=== PATIENT | female | born 1925 | race Caucasian/White ===

== ENCOUNTER → 2016-09-30 | Outpatient (CLI) | payer OTHER ==
[2015-06-27 14:11] VITALS: BP 164/70
== END ==
LOC: RAD 09:42
PROVIDERS: ATTEND Specialist
DX: Z12.31 Encounter for screening mammogram for malignant neoplasm of breast (principal)
CPT/HCPCS: 77067

== ENCOUNTER 2016-11-17 09:15 | Emergency (ER) | payer OTHER ==
[2016-11-17 09:22] VITALS: BP 147/64; BMI 23.9
--- NOTE | 2016-11-17 09:53 | DR.GENAD ---
HPI - PCP Primary Care Physician: junior - Complaint/Symptoms Chief Complaint:: patient stated she fell at home and landed on her left side. she is having upper left back pain and skin tear on her left elbow. - Nurses notes reviewed Nurses Notes Review: Yes - Source History Provided: Patient - Mode of Arrival Mode of Arrival: Ambulatory - Timing Onset of Chief Complaint: 11/15/16 Came on: Suddenly - Duration Duration: Constant Duration: Days PMH - PMH Past Medical History: No Past Surgical History: Yes Surgical History: IT LEAD Surgery, Hysterectomy, Ortho Surgery Past Surgical History Comment: breast reduction, cancer tx - Family History History of Family Medical Conditions: No - Social History Does patient currently use any type of tobacco product: No Have you used tobacco products in the last 12 months: No Type of Tobacco Use: None Does any household member use tobacco: No Alcohol Use: None Do you use any recreational Drugs:: No Lives With: Alone Lives Where: Home - infectious screening In the last 2 months have you had wt loss of >10#?: NO Have you had fever, night sweats or hemotysis?: No Have you traveled outside the country in the last 6 months?: No Isolation: Standard PE - Vital Signs Vitals: Temperature 98.9 F Pulse Rate 78 Respiratory Rate 16 Blood Pressure 147/64 O2 Sat by Pulse Oximetry 99 - Discharge Plan Condition: Stable - Follow ups/Referrals Follow ups/Referrals: Bj Moss [Primary Care Provider] - 2 days - Instructions Instructions: Rib Fracture, [id number] Additional Instructions: RETURN TO ED IF WORSE. CONTINUE WITH TRAMADOL YOU HAVE AT HOME.
--- NOTE | 2016-11-17 10:20 | RAD ---
HISTORY: Injury, fall, left rib pain Study: Left ribs four view Comparison: none Findings: The heart is within normal limits in size. The denton are normal. The aorta is calcified and ectatic. The lung bazzi are clear. There are fractures of the left lateral 7th and 8th ribs. The remainder o f the left ribs are intact. No pneumothorax or pleural effusion is identified. IMPRESSION: Fractures of the left 7th and 8th ribs laterally Reported By:
== END 2016-11-17 11:05 | disposition home or self-care (01) ==
LOC: MERGE 09:30 → ER 09:30
DX: S22.41XA Multiple fractures of ribs, right side, initial encounter for closed fracture (principal); W19.XXXA Unspecified fall, initial encounter; Y92.009 Unspecified place in unspecified non-institutional (private) residence as the place of occurrence of the external cause
CPT/HCPCS: 71111; 99282

== ENCOUNTER 2017-03-28 21:44 | Inpatient (IN) | payer OTHER ==
[2017-03-28 21:59] VITALS: BMI 23.3
[2017-03-28] MEDS ORDERED: ZOFRAN INJ 4 MG VIAL IVP ONE (22:40)
[2017-03-28] MEDS ORDERED: NS 1000 ML 1,000 ML IV ONE (22:40)
--- NOTE | 2017-03-28 22:41 | DR.GENAD ---
HPI - PCP Primary Care Physician: dr. moss - Complaint/Symptoms Chief Complaint Doctors Comments: Patient presented to the ED with comlaint of weakness and possible UTI. She states that she gets UTIs frequently and is on nitrofurantoin. She denies fever, vomiting or diarrhea. 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 Past Surgical History Comment: back surgery, knee replacement - Family History History of Family Medical Conditions: Yes Family Medical History: [place], Hypertension - Social History Does patient currently use any type of tobacco product: No Have you used tobacco products in the last 12 months: No Type of Tobacco Use: None Does any household member use tobacco: No Alcohol Use: None Do you use any recreational Drugs:: No Lives With: Alone Lives Where: Home - infectious screening In the last 2 months have you had wt loss of >10#?: NO Have you had fever, night sweats or hemotysis?: No Have you traveled outside the country in the last 6 months?: No Isolation: Standard ROS - Review of Systems Constitutional: negative: Diaphoresis Eyes: No Symptoms Reported ENTM: No Symptoms Reported Respiratoy: No Symptoms Reported Cardiovascular: No Symptoms Reported Gastrointestinal/Abdominal: No Symptoms Reported Genitourinary: No Symptoms Reported Neurological: No Symptoms Reported Musculoskeletal: No Symptoms Reported Integumentary: No Symptoms Reported Hematologic/Lymphatic: No Symptoms Reported Endocrine: No Symptoms Reported Psychiatric: No Symptoms Reported All Other Systems: Reviewed and Negative PE - Vital Signs Vitals: Temperature 99.3 F Pulse Rate 92 Respiratory Rate 20 Blood Pressure [Left Arm] 164/70 Blood Pressure 145/65 O2 Sat by Pulse Oximetry 93 - General General Appearance: Alert, In No Apparent Distress - Head Head Exam: Normal Inspection, Atraumatic - Eyes Eye exam: Normal Appearance, PERRL, EOMI - ENT ENT Exam: Normal Exam, Normal Oropharynx External Ear Exam: Normal External Inspection TM/Canal Exam: Bilateral Normal Nose Exam: Normal Nose Exam Mouth Exam: Other (dry) Throat Exam: Normal Inspection - Neck Neck Exam: Normal Inspection, Full ROM - Chest Chest Inspection: Normal Inspection - Respiratory Respiratory Exam: Normal Lung Sounds Bilat Respiratory Exam: Bilateral Clear to Auscultation - Cardiovascular Cardiovascular Exam: Regular Rate, Normal Rhythm - Abdominal Exam Abdominal Exam: Normal Inspection Abdominal Tenderness: negative: RUQ, RLQ, LUQ, LLQ, Epigastrium, Suprapubic, Diffuse, Mild, Moderate, Severe, Other - Extremities Extremities Exam: Normal Inspection. negative: Normal Capillary Refill - Back Back Exam: Normal Inspection - Neurologic Neurological Exam: Alert, Oriented X3, CN II-XII Intact - Psychiatric Psychiatric Exam: Normal Affect, Normal Mood - Skin Skin Exam: Warm, Dry, Intact Course - Reevaluation 1st: Unchanged - Consultation Called: 12:35 (Dr Balbuena agreed to admit for further evaluation and treatment) ROR - Labs Reviewed Result Diagrams: 03/28/17 22:00 03/28/17 22:00 Laboratory: WBC 9.3 X10^3/uL (3.6-10.0) 03/28/17 22:00 RBC 5.00 X10^6/uL (3.5-5.4) 03/28/17 22:00 Hgb 14.0 g/dL (12.0-16.0) 03/28/17 22:00 Hct 41.4 % (36.0-47.0) 03/28/17 22:00 MCV 82.8 fL (80.0-100.0) 03/28/17 22:00 MCH 28.0 pg (27.0-34.0) 03/28/17 22:00 MCHC 33.8 g/dL (33.0-35.0) 03/28/17 22:00 RDW 14.2 % (11.6-16.5) 03/28/17 22:00 Plt Count 168 X10^3/uL (150.0-450.0) 03/28/17 22:00 Plt Count Comment Adequate (ADEQUATE) 03/28/17 22:00 MPV 9.0 fL (7.4-11.0) 03/28/17 22:00 Neut % 95.1 % (42.0-75.0) H 03/28/17 22:00 Lymph % 2.9 % (21.0-51.0) L 03/28/17 22:00 [place] % 1.7 % (0.0-13.0) 03/28/17 22:00 Eos % 0.2 % (0.9-2.9) L 03/28/17 22:00 Baso % 0.1 % (0.2-1.0) L 03/28/17 22:00 Neut # 8.8 x10^3/uL (2.2-4.8) H 03/28/17 22:00 Lymph # 0.3 X10^3/uL (1.3-2.9) L 03/28/17 22:00 [place] # 0.2 x10^3/uL (0.3-0.8) L 03/28/17 22:00 Eos # 0.0 x10^3/uL (0.0-0.2) 03/28/17 22:00 Baso # 0.0 X10^3/uL (0.0-0.1) 03/28/17 22:00 Absolute Nucleated RBC 0.2 /100WBC 03/28/17 22:00 Total Counted 100 03/28/17 22:00 Neutrophils % (Manual) 80 % (39-76) H 03/28/17 22:00 Band Neutrophils % 13 % (0-10) H 03/28/17 22:00 Lymphocytes % (Manual) 5 % (13-43) L 03/28/17 22:00 Monocytes % (Manual) 2 % (4-9) L 03/28/17 22:00 Plt Morphology Comment Normal (NORMAL) 03/28/17 22:00 RBC Morphology Abnormal (NORMAL) A 03/28/17 22:00 Hypochromasia Slight A 03/28/17 22:00 Sodium 141 mmol/L (136-145) 03/28/17 22:00 Corrected Sodium 141 mmol/L (136-145) 03/28/17 22:00 Potassium 3.8 mmol/L (3.5-5.1) 03/28/17 22:00 Chloride 103 mmol/L (98-107) 03/28/17 22:00 Carbon Dioxide 28.0 mmol/L (21-32) 03/28/17 22:00 BUN 12 mg/dL (7-18) 03/28/17 22:00 Creatinine 0.60 mg/dL (0.55-1.02) 03/28/17 22:00 Est GFR (MDRD) Af Amer > 60 (>60) 03/28/17 22:00 Est GFR (MDRD) Non-Af > 60 (>60) 03/28/17 22:00 Glucose 111 mg/dL (65-99) H 03/28/17 22:00 Calcium 9.4 mg/dL (8.5-10.1) 03/28/17 22:00 Corrected Calcium 10.0 mg/dL (8.5-10.1) 03/28/17 22:00 Total Bilirubin 0.80 mg/dL (0.2-1.0) 03/28/17 22:00 AST 35 Units/L (15-37) 03/28/17 22:00 ALT 31 Units/L (12-78) 03/28/17 22:00 Alkaline Phosphatase 136 Units/L (46-116) H 03/28/17 22:00 Total Protein 7.2 g/dL (6.4-8.2) 03/28/17 22:00 Albumin 3.3 g/dL (3.4-5.0) L 03/28/17 22:00 Globulin 3.9 g/dL (2.5-4.5) 03/28/17 22:00 Albumin/Globulin Ratio 0.8 Ratio (1.1-2.1) L 03/28/17 22:00 Specimen Type Clean catch urine 03/28/17 23:07 Urine Color Yellow (YELLOW) 03/28/17 23:07 Urine Appearance Clear (CLEAR) 03/28/17 23:07 Urine pH 6.0 (5.0 - 8.0) 03/28/17 23:07 Ur Specific [place] 1.015 (1.000-1.030) 03/28/17 23:07 Urine Protein Negative (NEGATIVE) 03/28/17 23:07 Urine Glucose (UA) Negative (NEGATIVE) 03/28/17 23:07 Urine Ketones Negative (NEGATIVE) 03/28/17 23:07 Urine Occult Blood Negative (NEGATIVE) 03/28/17 23:07 Urine Nitrite Negative (NEGATIVE) 03/28/17 23:07 Urine Bilirubin Negative (NEGATIVE) 03/28/17 23:07 Urine Urobilinogen Normal (NORMAL) 03/28/17 23:07 Ur Leukocyte Esterase 1+ (NEGATIVE) 03/28/17 23:07 Urine RBC None seen /HPF (NEGATIVE) 03/28/17 23:07 Urine WBC 2-4 /HPF (NEGATIVE) 03/28/17 23:07 Ur Squamous Epith Cells Rare /HPF (NEGATIVE) 03/28/17 23:07 Urine Bacteria Trace /HPF (NEGATIVE) 03/28/17 23:07 Ur Culture Indicated? No/not indicated 03/28/17 23:07 - XRAY XRAY Interpreted by: Radiologist (Chest:There is cardiomegaly and chronic COPD change with hyperiinflation. Pleural thickening in the left lung base noted with underlying infiltrate possible. Left lung base infiltrate possible. Follow up with PA and lateral chest.) - Diagnosis Discharge Problem: Pneumonia involving left lung Qualifiers: Pneumonia type: due to unspecified organism Lung location: lower lobe of lung Qualified Code(s): J18.1 - Lobar pneumonia, unspecified organism - Discharge Plan Condition: Stable - Follow ups/Referrals Follow ups/Referrals: Bj Moss [Primary Care Provider] - 3 days - Instructions
[2017-03-28] MEDS ORDERED: ZOFRAN INJ 4 MG VIAL ONE (22:45)
[2017-03-28] MEDS ORDERED: NS 1000 ML 1,000 ML ONE (22:45)
[2017-03-28 22:48] LABS: BASOPHILS % (AUTO) 0.1 % (0.2-1.0); EOSINOPHILS % (AUTO) 0.2 % (0.9-2.9); HEMATOCRIT 41.4 % (36.0-47.0); LYMPHOCYTES # (AUTO) 0.3 X10^3/uL (1.3-2.9); LYMPHOCYTES % (AUTO) 2.9 % (21.0-51.0); MEAN CORPUSCULAR HGB CONC 33.8 g/dL (33.0-35.0); MEAN CORPUSCULAR VOLUME 82.8 fL (80.0-100.0); MONOCYTES # (AUTO) 0.2 x10^3/uL (0.3-0.8); MONOCYTES % (AUTO) 1.7 % (0.0-13.0); NEUTROPHILS # (AUTO) 8.8 x10^3/uL (2.2-4.8); NEUTROPHILS % (AUTO) 95.1 % (42.0-75.0); PLATELET COUNT 168 X10^3/uL (150.0-450.0); RED CELL DISTRIBUTION WIDTH 14.2 % (11.6-16.5); WHITE BLOOD COUNT 9.3 X10^3/uL (3.6-10.0)
[2017-03-28 22:57] LABS: ALANINE AMINOTRANSFERASE 31 Units/L (12-78); ALBUMIN 3.3 g/dL (3.4-5.0); ALKALINE PHOSPHATASE 136 Units/L (46-116); ASPARTATE AMINO TRANSFERASE 35 Units/L (15-37); BLOOD UREA NITROGEN 12 mg/dL (7-18); CALCIUM 9.4 mg/dL (8.5-10.1); CHLORIDE 103 mmol/L (98-107); COR NA(FOR HYPERGLY) 141 mmol/L (136-145); SODIUM 141 mmol/L (136-145); TOTAL PROTEIN 7.2 g/dL (6.4-8.2); eGFR BLACK RACES > 60 (>60); eGFR NON BLACK RACES > 60 (>60)
[2017-03-28 23:13] LABS: BAND NEUTROPHILS % 13 % (0-10); HYPOCHROMASIA SLIGHT; PLATELET MORPHOLOGY COMMENT NORMAL (NORMAL)
[2017-03-28 23:19] LABS: BILIRUBIN,URINE NEGATIVE (NEGATIVE); BLOOD/HEMOGLOBIN,URINE NEGATIVE (NEGATIVE); GLUCOSE, URINE NEGATIVE (NEGATIVE); KETONES,URINE NEGATIVE (NEGATIVE); LEUKOCYTE ESTERASE ,URINE 1+ (NEGATIVE); NITRITES,URINE NEGATIVE (NEGATIVE); PROTEIN,URINE NEGATIVE (NEGATIVE); UROBILINOGEN,URINE NORMAL (NORMAL)
[2017-03-28 23:25] LABS: APPEARANCE,URINE CLEAR (CLEAR); BACTERIA,URINE TRACE /HPF (NEGATIVE); COLOR,URINE YELLOW (YELLOW); RBC,URINE NONE SEEN /HPF (NEGATIVE); SQUAMOUS EPITHELIAL CELL,UR RARE /HPF (NEGATIVE)
--- NOTE | 2017-03-29 00:17 | RAD ---
Chest AP portable Indication: Weakness Comparison: 05/19/2012 Findings: There is cardiomegaly and chronic COPD change with hyperinflation. Pleural thickening in th e left lung base noted with underlying infiltrate possible. Small effusion possible. No pneumothorax seen. Impression: Cardiomegaly and COPD change. Left lung base infiltrate possible. Follow-up with PA and l ateral chest. Reported By:
[2017-03-29] MEDS ORDERED: NS 1000 ML 1,000 ML ONE (00:18)
[2017-03-29] MEDS: NS 1000 ML 1,000 ML IV SCH ×2 (00:26→16:41)
[2017-03-29] MEDS: LEVAQUIN PREMIX IV 750 MG 750 MG/150 ML BAG IV SCH ×2 (01:18→09:45)
[2017-03-29] MEDS ORDERED: NS 1/2 1000 ML IV 1,000 ML IV ONE ×2 (01:27→16:36)
[2017-03-29] MEDS: NS 1/2 1000 ML IV 1,000 ML IV SCH ×2 (01:38→16:43)
[2017-03-29 05:52] LABS: ALANINE AMINOTRANSFERASE 38 Units/L (12-78); ALBUMIN 2.7 g/dL (3.4-5.0); ALKALINE PHOSPHATASE 101 Units/L (46-116); ASPARTATE AMINO TRANSFERASE 45 Units/L (15-37); BLOOD UREA NITROGEN 13 mg/dL (7-18); CALCIUM 8.3 mg/dL (8.5-10.1); CHLORIDE 105 mmol/L (98-107); COR CA(FOR HYPOALB) 9.3 mg/dL (8.5-10.1); COR NA(FOR HYPERGLY) 141 mmol/L (136-145); CREATININE 0.69 mg/dL (0.55-1.02); SODIUM 140 mmol/L (136-145); eGFR BLACK RACES > 60 (>60); eGFR NON BLACK RACES > 60 (>60)
[2017-03-29 05:56] LABS: CARBON DIOXIDE 22.6 mmol/L (21-32)
[2017-03-29] MEDS: DUONEB 0.5 MG/3 MG NEB SCH ×5 (06:03→20:58)
[2017-03-29] MEDS ORDERED: MIRALAX POWDER (1 DOSE 17GM) ONE (07:33)
[2017-03-29] MEDS: MIRALAX POWDER (1 DOSE 17GM) PO SCH (07:45)
[2017-03-29] MEDS ORDERED: ULTRAM PO PRN ×3 (09:45→14:00)
[2017-03-29] MEDS: ROBITUSSIN DM PO SCH ×4 (09:45→21:29)
[2017-03-29] MEDS ORDERED: ZOFRAN INJ 4 MG VIAL IVP PRN (09:48)
[2017-03-29] MEDS ORDERED: ULTRAM ONE (09:49)
[2017-03-29] MEDS ORDERED: NS 50 ML IV + SPIKE MINIBAG* 50 ML IV ONE (10:06)
[2017-03-29] MEDS ORDERED: FORTAZ or TAZICEF INJ ONE (10:08)
[2017-03-29] MEDS: PEPCID 20 MG IV PREMIX* 20 MG/50 ML BAG IV SCH ×2 (10:20→21:29)
[2017-03-29] MEDS: FORTAZ or TAZICEF INJ 2 GM in NS 50 ML IV + SPIKE MINIBAG* 50 ML IV SCH ×3 (10:20→21:29)
[2017-03-29] MEDS: PROTONIX INJ 40 MG VIAL IVP SCH ×2 (10:21→21:29)
[2017-03-29] MEDS ORDERED: FLUVIRIN IM ONE (14:02)
[2017-03-29] MEDS ORDERED: ULTRAM PO SCH (21:00)
[2017-03-30] MEDS: DUONEB 0.5 MG/3 MG NEB SCH ×6 (00:41→20:12)
[2017-03-30] MEDS ORDERED: NS 1/2 1000 ML IV 1,000 ML IV ONE ×2 (05:01→17:51)
[2017-03-30] MEDS: FORTAZ or TAZICEF INJ 2 GM in NS 50 ML IV + SPIKE MINIBAG* 50 ML IV SCH ×3 (05:08→21:15)
[2017-03-30] MEDS: NS 1/2 1000 ML IV 1,000 ML IV SCH ×3 (05:08→21:14)
[2017-03-30 06:22] LABS: ALANINE AMINOTRANSFERASE 28 Units/L (12-78); ALBUMIN 2.4 g/dL (3.4-5.0); ALKALINE PHOSPHATASE 77 Units/L (46-116); ASPARTATE AMINO TRANSFERASE 32 Units/L (15-37); BLOOD UREA NITROGEN 12 mg/dL (7-18); CARBON DIOXIDE 25.6 mmol/L (21-32); CHLORIDE 105 mmol/L (98-107); COR CA(FOR HYPOALB) 9.3 mg/dL (8.5-10.1); CREATININE 0.57 mg/dL (0.55-1.02); SODIUM 139 mmol/L (136-145); TOTAL PROTEIN 5.5 g/dL (6.4-8.2); eGFR BLACK RACES > 60 (>60); eGFR NON BLACK RACES > 60 (>60)
[2017-03-30 06:43] LABS: BASOPHILS % (AUTO) 0.4 % (0.2-1.0); EOSINOPHILS # (AUTO) 0.3 x10^3/uL (0.0-0.2); EOSINOPHILS % (AUTO) 3.3 % (0.9-2.9); HEMATOCRIT 33.1 % (36.0-47.0); HEMOGLOBIN 11.1 g/dL (12.0-16.0); LYMPHOCYTES # (AUTO) 1.2 X10^3/uL (1.3-2.9); MEAN CORPUSCULAR HEMOGLOBIN 28.1 pg (27.0-34.0); MEAN CORPUSCULAR HGB CONC 33.6 g/dL (33.0-35.0); MEAN CORPUSCULAR VOLUME 83.6 fL (80.0-100.0); MEAN PLATELET VOLUME 9.9 fL (7.4-11.0); MONOCYTES # (AUTO) 0.5 x10^3/uL (0.3-0.8); MONOCYTES % (AUTO) 5.7 % (0.0-13.0); NEUTROPHILS # (AUTO) 6.7 x10^3/uL (2.2-4.8); NEUTROPHILS % (AUTO) 76.6 % (42.0-75.0); PLATELET COUNT 89 X10^3/uL (150.0-450.0); RED BLOOD COUNT 3.96 X10^6/uL (3.5-5.4); RED CELL DISTRIBUTION WIDTH 14.6 % (11.6-16.5); WHITE BLOOD COUNT 8.8 X10^3/uL (3.6-10.0)
[2017-03-30] MEDS ORDERED: BUTT CREAM (COMPOUND) ONE (08:35)
[2017-03-30] MEDS: MIRALAX POWDER (1 DOSE 17GM) PO SCH (09:12)
[2017-03-30] MEDS: ROBITUSSIN DM PO SCH ×4 (09:13→21:15)
[2017-03-30] MEDS: PEPCID 20 MG IV PREMIX* 20 MG/50 ML BAG IV SCH ×2 (09:13→21:14)
[2017-03-30] MEDS: LEVAQUIN PREMIX IV 750 MG 750 MG/150 ML BAG IV SCH (09:13)
[2017-03-30] MEDS: PROTONIX INJ 40 MG VIAL IVP SCH ×2 (09:13→21:14)
--- NOTE | 2017-03-30 11:01 | DR.H&P ---
H&P - History & Physical for Day of: H&P Date: 03/29/17 - Chief Complaint Chief Complaint: NAUSEA, WEAKNESS - Allergies Allergies/Adverse Reactions: Allergies Allergy/AdvReac Type Severity Reaction Status Date / Time naproxen Allergy Verified 03/28/17 22:22 Penicillins Allergy Verified 03/28/17 22:22 - History of Present Illness History of Present Illness: Ms. Fisher is a 89 year old patient of ours who presented to the emergency room with complaints of nausea, weakness, and bladder infection.Patient reports that she has been taking Nitrofurantoin 100mg that was prescribed by us with no improvement in symptoms. Patient reports a history of frequent urinary tract infections. She is also noted with complaints of shortness of breath. On arrival, patient is noted to be short of breath on exertion. Patient placed on supplemental oxygen at 2LPM nasal cannula. On examination, lungs are noted with diminished lung sounds and wheezing bilaterally to auscultation. Abdomen is soft, round, and non-tender. She reports difficulty coughing and difficulty clearing secretions. Patient reports that she has to sit on the edge of the bed to help with her breathing. Sputum from nasotracheal suction is noted to be thick and yellow. On arrival to ER, vital signs were 99.3, 92, 20, 93%NC 2LPM, 145/65. A CBC, CMP, urinalysis, and chest xray were obtained. Abnormal lab values include the following: Neut% 95.1 , Lymph% 2.9, Eos% 0.2, Baso% 0.1, Neut# 8.8, Lymph# 0.3, [place]# 0.2, [place]%(man) 80, Band Neut%(man) 13, Lymph%(man) 5, [place]%(man) 2, RBC Morphology Abnormal A, Hypochromasia Slight A, Glucose 111, Alk Phos 136, Albumin 3.3, A/G Ratio 0.8. Urinalysis reported: Leuk [place] 1+, WBC 2-4, Squam Epith Cells Rare, bacteria Trace. Blood cultures and sputum culture was obtained and sent to lab and are pending results. A chest xray was obtained and reported: Cardiomegaly and COPD change. Left lung base infiltrate possible. Follow up with PA and lateral chest recommended. We admitted to the hospital for further treatment and evaluation. We will start patient on pneumonia protocol with levaquin 750mg iv daily and scheduled nebulizer treatments. We plan to follow up with am labs and chest xray and continue to monitor. 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 denies: Fever Eyes: No Symptoms Reported. denies: Vision Change ENT: No Symptoms Reported. denies: Nose Discharge, Nose Congestion Respiratory: Cough, Shortness of Breath, SOB with Excertion, Wheezing Cardiovascular: No Symptoms Reported. denies: Palpitations, Light Headedness Gastrointestinal: Nausea, Abdominal Pain. denies: Diarrhea, Constipation, Hematochezia Genitourinary: Dysuria Musculoskeletal: No Symptoms Reported Skin: No Symptoms Reported Neurological: Weakness. denies: Change in Speech, Seizures - Physical Exam Vital Signs: Temperature 98.2 F Pulse Rate [Right Radial] 63 Pulse Rate 58 Respiratory Rate 17 Blood Pressure [Left Arm] 112/55 Blood Pressure 145/65 O2 Sat by Pulse Oximetry 97 Oriented: Normal Eyes: Normal Ear: Normal Nose: Normal Throat: Dry Respiratory: Clear Throughout, Diminished Throughout, Wheezes Throughout Cardiovascular: Tachycardia : Normal, Dysuria Auscultation: Bowel Sounds: Normal Palpation: Normal Tenderness: Suprapubic Skin: Normal Musculoskeletal: Instability Psychiatric: Normal Mood Description: Calm Affect: Normal Speech Pattern: Clear. negative: Aphasic, Artificially Ventilated - Assessment/Plan (1) Pneumonia involving left lung Qualifiers: Pneumonia type: due to unspecified organism Lung location: lower lobe of lung Qualified Code(s): J18.1 - Lobar pneumonia, unspecified organism Status: Acute Plan: pneumonia protocol, levaquin 750mg iv daily, duonebs, supplemental oxygen , continue to monitor
[2017-03-31] MEDS: DUONEB 0.5 MG/3 MG NEB SCH ×6 (01:14→21:09)
[2017-03-31] MEDS: FORTAZ or TAZICEF INJ 2 GM in NS 50 ML IV + SPIKE MINIBAG* 50 ML IV SCH ×3 (05:20→21:13)
[2017-03-31 06:11] LABS: BASOPHILS % (AUTO) 0.6 % (0.2-1.0); EOSINOPHILS # (AUTO) 0.4 x10^3/uL (0.0-0.2); EOSINOPHILS % (AUTO) 7.4 % (0.9-2.9); HEMATOCRIT 33.5 % (36.0-47.0); HEMOGLOBIN 11.3 g/dL (12.0-16.0); LYMPHOCYTES # (AUTO) 1.3 X10^3/uL (1.3-2.9); LYMPHOCYTES % (AUTO) 26.4 % (21.0-51.0); MEAN CORPUSCULAR HEMOGLOBIN 28.2 pg (27.0-34.0); MEAN CORPUSCULAR HGB CONC 33.7 g/dL (33.0-35.0); MEAN CORPUSCULAR VOLUME 83.5 fL (80.0-100.0); MEAN PLATELET VOLUME 8.9 fL (7.4-11.0); MONOCYTES # (AUTO) 0.4 x10^3/uL (0.3-0.8); MONOCYTES % (AUTO) 8.6 % (0.0-13.0); NEUTROPHILS # (AUTO) 2.8 x10^3/uL (2.2-4.8); PLATELET COUNT 121 X10^3/uL (150.0-450.0); RED BLOOD COUNT 4.02 X10^6/uL (3.5-5.4); RED CELL DISTRIBUTION WIDTH 14.5 % (11.6-16.5); WHITE BLOOD COUNT 4.9 X10^3/uL (3.6-10.0)
[2017-03-31 06:33] LABS: ALANINE AMINOTRANSFERASE 29 Units/L (12-78); ALBUMIN 2.4 g/dL (3.4-5.0); ALKALINE PHOSPHATASE 95 Units/L (46-116); ASPARTATE AMINO TRANSFERASE 29 Units/L (15-37); BLOOD UREA NITROGEN 15 mg/dL (7-18); CALCIUM 8.4 mg/dL (8.5-10.1); CARBON DIOXIDE 27.2 mmol/L (21-32); CHLORIDE 107 mmol/L (98-107); COR CA(FOR HYPOALB) 9.7 mg/dL (8.5-10.1); CREATININE 0.72 mg/dL (0.55-1.02); SODIUM 141 mmol/L (136-145); TOTAL PROTEIN 5.7 g/dL (6.4-8.2); eGFR BLACK RACES > 60 (>60); eGFR NON BLACK RACES > 60 (>60)
[2017-03-31] MEDS: LEVAQUIN PREMIX IV 750 MG 750 MG/150 ML BAG IV SCH (08:00)
[2017-03-31] MEDS: PEPCID 20 MG IV PREMIX* 20 MG/50 ML BAG IV SCH ×2 (08:00→21:12)
[2017-03-31] MEDS: ROBITUSSIN DM PO SCH ×4 (08:00→21:13)
[2017-03-31] MEDS: PROTONIX INJ 40 MG VIAL IVP SCH ×2 (08:00→21:13)
[2017-03-31] MEDS: MIRALAX POWDER (1 DOSE 17GM) PO SCH (08:00)
[2017-03-31] MEDS ORDERED: NS 1/2 1000 ML IV 1,000 ML IV ONE (16:24)
[2017-03-31] MEDS: NS 1/2 1000 ML IV 1,000 ML IV SCH (16:27)
--- NOTE | 2017-03-31 21:56 | PCM.PROG ---
Progress Note - Progress Note for Day of Date: 03/30/17 - Subjective Subjective: WAS ADMITTED FOR PNEUMONIA AND DEHYDRATION. TODAY, SHE IS ALERT AND ORIENTED, LYING IN BED ON MORNING ROUNDS. PATIENT'S DAUGHTER IS AT BEDSIDE. SHE IS NOTED WITH COMPLAINTS OF NAUSEA, SHORTNESS OF BREATH, BIALTERAL LEG PAIN, AND PRODUCTIVE COUGH. ON EXAMINATION, LUNGS ARE NOTED WITH RHONCHI BILATERALLY TO AUSCULTATION. ABDOMEN IS ROUND, SOFT, AND NON-TENDER WITH NORMAL BOWEL SOUNDS NOTED TO AUSCULTATION. HER VITAL SIGNS TODAY ARE 98.2-63-17-97%-112 /55. A CBC, CMP, AND CHEST XRAY WERE OBTAINED THIS MORNING. ABNORMAL LAB VALUES INCLUDE THE FOLLOWING: HGB 11.1, HCT 33.1, CALCIUM 8.0, TOTAL PROTEIN 5.5, ALBUMIN 2.4, TOTAL BILI 1.10. CHEST XRAY REPORTED BLUNTING OF THE LEFT COSTOPHRENIC ANGLE MAY REPRESENT DIAPHRAGMATIC ABNORMALITY, SMALL PLEAURAL EFFUSION OR LEFT LUNG BASE INFILTRATE. YESTERDAY, WE STARTED FORTAZ 2GM IV Q8H, PEPCID AND PROTONIX IV, ZOFRAN IV FOR NAUSEA, AND TRAMADOL 100MG PO QID PRN FOR PAIN. TODAY, WE WILL CONTINUE WITH CURRENT PLAN OF CARE. WE PLAN TO FOLLOW UP WITH AM LABS AND CONTINUE TO MONITOR PATIENT. - Past Medical Family Social History Past Med/Fam/Surg Hx: No changes since H&P Allergies: Allergies naproxen Allergy (Verified 03/28/17 22:22) Penicillins Allergy (Verified 03/28/17 22:22) - Review of Systems ROS: No change since H&P - Vital Signs and I&O's Vital Signs: Temperature 98.6 F Pulse Rate [Right Radial] 50 Pulse Rate 61 Respiratory Rate 20 Blood Pressure [Left Arm] 169/72 Blood Pressure 145/65 O2 Sat by Pulse Oximetry 100 Intake and Output: Intake & Output 03/29/17 03/30/17 03/31/17 04/01/17 11:59 11:59 11:59 11:59 Intake Total 520 2572 2080 1395 Balance 520 2572 2080 1395 - Physical Exam Oriented: Normal Eyes: Normal Ear: Normal Nose: Normal Throat: Dry Respiratory: Generalized, Rhonchi Cardiovascular: Tachycardia : Normal, Dysuria Auscultation: Bowel Sounds: Normal Palpation: Normal Tenderness: Suprapubic Skin: Normal Musculoskeletal: Instability Psychiatric: Normal Mood Description: Calm Affect: Normal Speech Pattern: Clear, Appropriate - Laboratory and Diagnostics Result Diagrams: 03/31/17 05:38 03/31/17 05:38 Labs: 03/29/17 01:15 Blood Blood Culture - Preliminary 03/29/17 01:07 Blood Blood Culture - Preliminary 03/29/17 01:25 Sputum - Endotracheal Wash Sputum Culture - Final 03/29/17 01:25 Sputum - Endotracheal Wash - Final Laboratory WBC 4.9 X10^3/uL (3.6-10.0) 03/31/17 05:38 RBC 4.02 X10^6/uL (3.5-5.4) 03/31/17 05:38 Hgb 11.3 g/dL (12.0-16.0) L 03/31/17 05:38 Hct 33.5 % (36.0-47.0) L 03/31/17 05:38 MCV 83.5 fL (80.0-100.0) 03/31/17 05:38 MCH 28.2 pg (27.0-34.0) 03/31/17 05:38 MCHC 33.7 g/dL (33.0-35.0) 03/31/17 05:38 RDW 14.5 % (11.6-16.5) 03/31/17 05:38 Plt Count 121 X10^3/uL (150.0-450.0) L 03/31/17 05:38 Plt Count Comment Adequate (ADEQUATE) 03/28/17 22:00 MPV 8.9 fL (7.4-11.0) 03/31/17 05:38 Neut % 57.0 % (42.0-75.0) 03/31/17 05:38 Lymph % 26.4 % (21.0-51.0) 03/31/17 05:38 [place] % 8.6 % (0.0-13.0) 03/31/17 05:38 Eos % 7.4 % (0.9-2.9) H 03/31/17 05:38 Baso % 0.6 % (0.2-1.0) 03/31/17 05:38 Neut # 2.8 x10^3/uL (2.2-4.8) 03/31/17 05:38 Lymph # 1.3 X10^3/uL (1.3-2.9) 03/31/17 05:38 [place] # 0.4 x10^3/uL (0.3-0.8) 03/31/17 05:38 Eos # 0.4 x10^3/uL (0.0-0.2) H 03/31/17 05:38 Baso # 0.0 X10^3/uL (0.0-0.1) 03/31/17 05:38 Absolute Nucleated RBC 0.0 /100WBC 03/31/17 05:38 Total Counted 100 03/28/17 22:00 Neutrophils % (Manual) 80 % (39-76) H 03/28/17 22:00 Band Neutrophils % 13 % (0-10) H 03/28/17 22:00 Lymphocytes % (Manual) 5 % (13-43) L 03/28/17 22:00 Monocytes % (Manual) 2 % (4-9) L 03/28/17 22:00 Plt Morphology Comment Normal (NORMAL) 03/28/17 22:00 RBC Morphology Abnormal (NORMAL) A 03/28/17 22:00 Hypochromasia Slight A 03/28/17 22:00 Sodium 141 mmol/L (136-145) 03/31/17 05:38 Corrected Sodium TNP 03/31/17 05:38 Potassium 3.7 mmol/L (3.5-5.1) 03/31/17 05:38 Chloride 107 mmol/L (98-107) 03/31/17 05:38 Carbon Dioxide 27.2 mmol/L (21-32) 03/31/17 05:38 BUN 15 mg/dL (7-18) 03/31/17 05:38 Creatinine 0.72 mg/dL (0.55-1.02) 03/31/17 05:38 Est GFR (MDRD) Af Amer > 60 (>60) 03/31/17 05:38 Est GFR (MDRD) Non-Af > 60 (>60) 03/31/17 05:38 Glucose 91 mg/dL (65-99) 03/31/17 05:38 Calcium 8.4 mg/dL (8.5-10.1) L 03/31/17 05:38 Corrected Calcium 9.7 mg/dL (8.5-10.1) 03/31/17 05:38 Total Bilirubin 0.60 mg/dL (0.2-1.0) 03/31/17 05:38 AST 29 Units/L (15-37) 03/31/17 05:38 ALT 29 Units/L (12-78) 03/31/17 05:38 Alkaline Phosphatase 95 Units/L (46-116) 03/31/17 05:38 Total Protein 5.7 g/dL (6.4-8.2) L 03/31/17 05:38 Albumin 2.4 g/dL (3.4-5.0) L 03/31/17 05:38 Globulin 3.3 g/dL (2.5-4.5) 03/31/17 05:38 Albumin/Globulin Ratio 0.7 Ratio (1.1-2.1) L 03/31/17 05:38 Specimen Type Clean catch urine 03/28/17 23:07 Urine Color Yellow (YELLOW) 03/28/17 23:07 Urine Appearance Clear (CLEAR) 03/28/17 23:07 Urine pH 6.0 (5.0 - 8.0) 03/28/17 23:07 Ur Specific [place] 1.015 (1.000-1.030) 03/28/17 23:07 Urine Protein Negative (NEGATIVE) 03/28/17 23:07 Urine Glucose (UA) Negative (NEGATIVE) 03/28/17 23:07 Urine Ketones Negative (NEGATIVE) 03/28/17 23:07 Urine Occult Blood Negative (NEGATIVE) 03/28/17 23:07 Urine Nitrite Negative (NEGATIVE) 03/28/17 23:07 Urine Bilirubin Negative (NEGATIVE) 03/28/17 23:07 Urine Urobilinogen Normal (NORMAL) 03/28/17 23:07 Ur Leukocyte Esterase 1+ (NEGATIVE) 03/28/17 23:07 Urine RBC None seen /HPF (NEGATIVE) 03/28/17 23:07 Urine WBC 2-4 /HPF (NEGATIVE) 03/28/17 23:07 Ur Squamous Epith Cells Rare /HPF (NEGATIVE) 03/28/17 23:07 Urine Bacteria Trace /HPF (NEGATIVE) 03/28/17 23:07 Ur Culture Indicated? No/not indicated 03/28/17 23:07 - Plan (1) Pneumonia involving left lung Status: Acute Qualifiers: Pneumonia type: due to unspecified organism Lung location: lower lobe of lung Qualified Code(s): J18.1 - Lobar pneumonia, unspecified organism Plan: pneumonia protocol, levaquin 750mg iv daily, duonebs, supplemental oxygen , continue to monitor
[2017-04-01] MEDS: DUONEB 0.5 MG/3 MG NEB SCH ×3 (01:13→09:05)
[2017-04-01 05:32] LABS: EOSINOPHILS # (AUTO) 0.4 x10^3/uL (0.0-0.2); EOSINOPHILS % (AUTO) 9.2 % (0.9-2.9); HEMATOCRIT 34.6 % (36.0-47.0); HEMOGLOBIN 11.8 g/dL (12.0-16.0); LYMPHOCYTES # (AUTO) 1.4 X10^3/uL (1.3-2.9); MEAN CORPUSCULAR HEMOGLOBIN 28.1 pg (27.0-34.0); MEAN CORPUSCULAR VOLUME 82.7 fL (80.0-100.0); MEAN PLATELET VOLUME 8.4 fL (7.4-11.0); MONOCYTES # (AUTO) 0.4 x10^3/uL (0.3-0.8); MONOCYTES % (AUTO) 9.5 % (0.0-13.0); NEUTROPHILS # (AUTO) 2.2 x10^3/uL (2.2-4.8); NEUTROPHILS % (AUTO) 49.3 % (42.0-75.0); PLATELET COUNT 128 X10^3/uL (150.0-450.0); RED BLOOD COUNT 4.19 X10^6/uL (3.5-5.4); RED CELL DISTRIBUTION WIDTH 14.7 % (11.6-16.5); WHITE BLOOD COUNT 4.6 X10^3/uL (3.6-10.0)
[2017-04-01 05:44] LABS: ALANINE AMINOTRANSFERASE 33 Units/L (12-78); ALBUMIN 2.5 g/dL (3.4-5.0); ALKALINE PHOSPHATASE 107 Units/L (46-116); ASPARTATE AMINO TRANSFERASE 31 Units/L (15-37); BLOOD UREA NITROGEN 11 mg/dL (7-18); CALCIUM 8.6 mg/dL (8.5-10.1); CARBON DIOXIDE 27.6 mmol/L (21-32); CHLORIDE 106 mmol/L (98-107); COR CA(FOR HYPOALB) 9.8 mg/dL (8.5-10.1); CREATININE 0.59 mg/dL (0.55-1.02); SODIUM 142 mmol/L (136-145); TOTAL PROTEIN 5.8 g/dL (6.4-8.2); eGFR BLACK RACES > 60 (>60); eGFR NON BLACK RACES > 60 (>60)
[2017-04-01] MEDS: NS 1/2 1000 ML IV 1,000 ML IV SCH (05:54)
[2017-04-01] MEDS: FORTAZ or TAZICEF INJ 2 GM in NS 50 ML IV + SPIKE MINIBAG* 50 ML IV SCH (05:55)
[2017-04-01] MEDS: MIRALAX POWDER (1 DOSE 17GM) PO SCH (08:12)
[2017-04-01] MEDS: PEPCID 20 MG IV PREMIX* 20 MG/50 ML BAG IV SCH (08:12)
[2017-04-01] MEDS: ROBITUSSIN DM PO SCH (08:12)
[2017-04-01] MEDS: LEVAQUIN PREMIX IV 750 MG 750 MG/150 ML BAG IV SCH (08:12)
[2017-04-01] MEDS: PROTONIX INJ 40 MG VIAL IVP SCH (08:13)
[2017-04-01 08:48] VITALS: BP 168/68
--- NOTE | 2017-04-05 10:28 | PCM.PROG ---
Progress Note - Progress Note for Day of Date: 03/31/17 - Subjective Subjective: WAS ADMITTED FOR PNEUMONIA AND DEHYDRATION. TODAY, SHE IS ALERT AND ORIENTED, LYING IN BED ON MORNING ROUNDS. PATIENT'S DAUGHTER IS AT BEDSIDE. SHE CONTINUES WITH COMPLAINTS OF SHORTNESS OF BREATH, PRODUCTIVE COUGH , AND WEAKNESS. ON EXAMINATION, LUNGS SOUNDS ARE DIMINISHED. ABDOMEN IS ROUND, SOFT, AND NON-TENDER WITH NORMAL BOWEL SOUNDS NOTED TO AUSCULTATION. HER VITAL SIGNS TODAY ARE 97.5-61-19-95%-162/69. A CBC, CMP, AND CHEST XRAY WERE OBTAINED THIS MORNING. ABNORMAL LAB VALUES INCLUDE THE FOLLOWING: HGB 11.3, HCT 33.5, CALCIUM 8.4, TOTAL PROTEIN 5.8, ALBUMIN 2.5. PRELIMINARY SPUTUM CULTURES REPORT NORMAL LUPE AT DAY TWO. PRELIMINARY BLOOD CULTURES REPORT NO GROWTH AT DAY TWO. CHEST XRAY REPORTED PATCHY AIRSPACE DISEASE, WHICH MAY REPRESENT ATELECTASIS VERSUS EARLY INFILTRATE. TODAY, WE WILL CONTINUE WITH CURRENT PLAN OF CARE. WE PLAN TO FOLLOW UP WITH AM LABS AND CONTINUE TO MONITOR PATIENT. - Past Medical Family Social History Past Med/Fam/Surg Hx: No changes since H&P Allergies: Allergies naproxen Allergy (Verified 03/28/17 22:22) Penicillins Allergy (Verified 03/28/17 22:22) - Review of Systems ROS: No change since H&P - Vital Signs and I&O's Vital Signs: Temperature 99.3 F Pulse Rate [Right Radial] 52 Pulse Rate 53 Respiratory Rate 21 Blood Pressure [Left Arm] 168/68 Blood Pressure 145/65 O2 Sat by Pulse Oximetry 98 - Physical Exam Oriented: Normal Eyes: Normal Ear: Normal Nose: Normal Throat: Dry Respiratory: Diminished Cardiovascular: Tachycardia : Normal, Dysuria Auscultation: Bowel Sounds: Normal Palpation: Normal Tenderness: Suprapubic Skin: Normal Musculoskeletal: Instability Psychiatric: Normal Mood Description: Calm Affect: Normal Speech Pattern: Clear, Appropriate - Laboratory and Diagnostics Result Diagrams: 04/01/17 05:05 04/01/17 05:05 Labs: 03/29/17 01:15 Blood Blood Culture - Final 03/29/17 01:07 Blood Blood Culture - Final 03/29/17 01:25 Sputum - Endotracheal Wash Sputum Culture - Final 03/29/17 01:25 Sputum - Endotracheal Wash - Final Laboratory WBC 4.6 X10^3/uL (3.6-10.0) 04/01/17 05:05 RBC 4.19 X10^6/uL (3.5-5.4) 04/01/17 05:05 Hgb 11.8 g/dL (12.0-16.0) L 04/01/17 05:05 Hct 34.6 % (36.0-47.0) L 04/01/17 05:05 MCV 82.7 fL (80.0-100.0) 04/01/17 05:05 MCH 28.1 pg (27.0-34.0) 04/01/17 05:05 MCHC 34.0 g/dL (33.0-35.0) 04/01/17 05:05 RDW 14.7 % (11.6-16.5) 04/01/17 05:05 Plt Count 128 X10^3/uL (150.0-450.0) L 04/01/17 05:05 Plt Count Comment Adequate (ADEQUATE) 03/28/17 22:00 MPV 8.4 fL (7.4-11.0) 04/01/17 05:05 Neut % 49.3 % (42.0-75.0) 04/01/17 05:05 Lymph % 31.0 % (21.0-51.0) 04/01/17 05:05 Whitley % 9.5 % (0.0-13.0) 04/01/17 05:05 Eos % 9.2 % (0.9-2.9) H 04/01/17 05:05 Baso % 1.0 % (0.2-1.0) 04/01/17 05:05 Neut # 2.2 x10^3/uL (2.2-4.8) 04/01/17 05:05 Lymph # 1.4 X10^3/uL (1.3-2.9) 04/01/17 05:05 Whitley # 0.4 x10^3/uL (0.3-0.8) 04/01/17 05:05 Eos # 0.4 x10^3/uL (0.0-0.2) H 04/01/17 05:05 Baso # 0.0 X10^3/uL (0.0-0.1) 04/01/17 05:05 Absolute Nucleated RBC 0.1 /100WBC 04/01/17 05:05 Total Counted 100 03/28/17 22:00 Neutrophils % (Manual) 80 % (39-76) H 03/28/17 22:00 Band Neutrophils % 13 % (0-10) H 03/28/17 22:00 Lymphocytes % (Manual) 5 % (13-43) L 03/28/17 22:00 Monocytes % (Manual) 2 % (4-9) L 03/28/17 22:00 Plt Morphology Comment Normal (NORMAL) 03/28/17 22:00 RBC Morphology Abnormal (NORMAL) A 03/28/17 22:00 Hypochromasia Slight A 03/28/17 22:00 Sodium 142 mmol/L (136-145) 04/01/17 05:05 Corrected Sodium TNP 04/01/17 05:05 Potassium 3.7 mmol/L (3.5-5.1) 04/01/17 05:05 Chloride 106 mmol/L (98-107) 04/01/17 05:05 Carbon Dioxide 27.6 mmol/L (21-32) 04/01/17 05:05 BUN 11 mg/dL (7-18) 04/01/17 05:05 Creatinine 0.59 mg/dL (0.55-1.02) 04/01/17 05:05 Est GFR (MDRD) Af Amer > 60 (>60) 04/01/17 05:05 Est GFR (MDRD) Non-Af > 60 (>60) 04/01/17 05:05 Glucose 102 mg/dL (65-99) H 04/01/17 05:05 Calcium 8.6 mg/dL (8.5-10.1) 04/01/17 05:05 Corrected Calcium 9.8 mg/dL (8.5-10.1) 04/01/17 05:05 Total Bilirubin 0.50 mg/dL (0.2-1.0) 04/01/17 05:05 AST 31 Units/L (15-37) 04/01/17 05:05 ALT 33 Units/L (12-78) 04/01/17 05:05 Alkaline Phosphatase 107 Units/L (46-116) 04/01/17 05:05 Total Protein 5.8 g/dL (6.4-8.2) L 04/01/17 05:05 Albumin 2.5 g/dL (3.4-5.0) L 04/01/17 05:05 Globulin 3.3 g/dL (2.5-4.5) 04/01/17 05:05 Albumin/Globulin Ratio 0.8 Ratio (1.1-2.1) L 04/01/17 05:05 Specimen Type Clean catch urine 03/28/17 23:07 Urine Color Yellow (YELLOW) 03/28/17 23:07 Urine Appearance Clear (CLEAR) 03/28/17 23:07 Urine pH 6.0 (5.0 - 8.0) 03/28/17 23:07 Ur Specific Levasy 1.015 (1.000-1.030) 03/28/17 23:07 Urine Protein Negative (NEGATIVE) 03/28/17 23:07 Urine Glucose (UA) Negative (NEGATIVE) 03/28/17 23:07 Urine Ketones Negative (NEGATIVE) 03/28/17 23:07 Urine Occult Blood Negative (NEGATIVE) 03/28/17 23:07 Urine Nitrite Negative (NEGATIVE) 03/28/17 23:07 Urine Bilirubin Negative (NEGATIVE) 03/28/17 23:07 Urine Urobilinogen Normal (NORMAL) 03/28/17 23:07 Ur Leukocyte Esterase 1+ (NEGATIVE) 03/28/17 23:07 Urine RBC None seen /HPF (NEGATIVE) 03/28/17 23:07 Urine WBC 2-4 /HPF (NEGATIVE) 03/28/17 23:07 Ur Squamous Epith Cells Rare /HPF (NEGATIVE) 03/28/17 23:07 Urine Bacteria Trace /HPF (NEGATIVE) 03/28/17 23:07 Ur Culture Indicated? No/not indicated 03/28/17 23:07 - Plan (1) Pneumonia involving left lung Status: Acute Qualifiers: Pneumonia type: due to unspecified organism Lung location: lower lobe of lung Qualified Code(s): J18.1 - Lobar pneumonia, unspecified organism Plan: pneumonia protocol, levaquin 750mg iv daily, duonebs, supplemental oxygen , continue to monitor (2) Nausea Status: Acute Plan: ZOFRAN 4MG IV PRN NAUSEA, CONTINUE TO MONITOR
== END 2017-04-01 11:15 | disposition home health service (06) | DRG 195 ==
LOC: ER 21:47 → ICU 03-29 00:46
PROVIDERS: ADMIT Obstetrics & Gynecology Obstetrics; ATTEND Internal Medicine
PROC: 3E0234Z Introduction of Serum, Toxoid and Vaccine into Muscle, Percutaneous Approach (ICD-10-PCS; principal; 2017-03-29)
DX: J18.8 Other pneumonia, unspecified organism (principal); E86.0 Dehydration; R53.1 Weakness; I51.7 Cardiomegaly; J44.9 Chronic obstructive pulmonary disease, unspecified; R06.02 Shortness of breath; R11.0 Nausea; Z23 Encounter for immunization
CPT/HCPCS: 36415; 71010; 80053; 81001; 85025; 87040; 87070; 87205; 90686; 94640; 96365; 96367; 96374; 96375; 99284; 99285; A4222; C9113; S0028; J0713; J1956; J2405; J7620

== ENCOUNTER → 2017-10-03 | Outpatient (CLI) | payer OTHER ==
--- NOTE | 2017-10-03 14:03 | MG ---
HISTORY: SCREENING Comparison: Multiple priors dating back to June 04, 2013 FINDINGS: Bilateral CC and MLO projections of the right and left breast were obtained. Scattered fibroglandula r tissue is seen to be present without significant interval change. No suspicious architectural dist ortion, mass or clustered microcalcifications can be observed to suggest malignancy. No skin thicken ing or nipple retraction is appreciated. No pathological lymphadenopathy can be identified. Benign- appearing calcifications are noted within the right and left breast. IMPRESSION: NO RADIOGRAPHIC EVIDENCE OF MALIGNANCY. ACR CATEGORY 2 - benign findings. FOLLOW-UP EXAM 1 YEAR. Diagnostic CAD was utilized and reviewed. * 0 (ZERO) - ASSESSMENT INCOMPLETE; ADDITIONAL IMAGING IS NEEDED. * 1/1 (ONE) - NEGATIVE. * 2/II (TWO) - BENIGN FINDINGS. * 3/III (THREE) - PROBABLY BENIGN FINDING; SHORT INTERVAL FOLLOW-UP SUGGESTED. * 4/IV (FOUR) - SUSPICIOUS ABNORMALITY; BIOPSY SHOULD BE CONSIDERED. * 5/V - HIGHLY SUSPICIOUS OF MALIGNANCY; BIOPSY SHOULD BE PERFORMED. A NEGATIVE X-RAY REPORT SHOULD NOT DELAY BIOPSY IF A DOMINANT OR CLINICALLY SUSPICIOUS MASS IS PRESENT; 4 TO 8 PERCENT OF CANCERS ARE NOT IDENTIFIED BY X-RAY. A NEGA TIVE REPORT MAY REINFORCE THE CLINICAL IMPRESSION. ADENOSIS AND DENSE BREASTS MAY OBSCURE AN UNDERLY ING NEOPLASM. Reported By:
== END ==
LOC: RAD 08:58
PROVIDERS: ATTEND Specialist
DX: Z12.31 Encounter for screening mammogram for malignant neoplasm of breast (principal)
CPT/HCPCS: 77067